=== PATIENT | male | born 1960 | race Caucasian/White ===

== ENCOUNTER 2020-06-25 13:46 | Emergency (ER) | payer OTHER ==
[~2020-06-25] VITALS: Ht 172.7 cm; Wt 77.1 kg
[2020-06-25 13:47] VITALS: BP 157/104
[2020-06-25] MEDS ORDERED: KETOROLAC TROMETH 60MG/2ML VIAL IM ONE (15:30)
== END 2020-06-25 16:24 | disposition home or self-care (01) ==
LOC: ER 13:46
DX: M50.10 Cervical disc disorder with radiculopathy, unspecified cervical region (principal); I10 Essential (primary) hypertension
CPT/HCPCS: 72040; 93005; 96372; 99283; J1885

== ENCOUNTER 2020-08-10 16:18 | Inpatient (IN) | payer OTHER ==
[~2020-08-10] VITALS: Ht 172.7 cm; Wt 73.5 kg
[2020-08-10] MEDS ORDERED: SODIUM CHLORIDE 0.9% 500 ML IVB ONE (16:45)
[2020-08-10] MEDS ORDERED: MORPHINE SULFATE 4 MG/ML SYR/VIAL IV ONE (16:45)
[2020-08-10] MEDS ORDERED: ONDANSETRON HCL 4 MG/2 ML VIAL IV ONE (16:45)
[2020-08-10 16:53] LABS: Basophils # (auto) 0.1 10 ^3/uL (0-0.2); Basophils % (auto) 0.6 % (0.0-2.0); Eosinophils # (auto) 0.1 10 ^3/uL (0-0.8); Eosinophils % (auto) 1.2 % (0.0-7.0); Hematocrit 45.1 % (41.0-53.0); Hemoglobin 15.9 g/dL (13.5-17.5); Lymphocytes # (auto) 1.5 10 ^3/uL (0.4-5.4); Mean Corpuscular Hemoglobin 32.7 pg (28.0-32.0); Mean Corpuscular Hgb Conc. 35.3 g/dL (32.0-36.0); Mean Corpuscular Volume 92.6 fL (80.0-100.0); Monocytes # (auto) 0.8 10 ^3/uL (0-1.3); Neutrophils # (auto) 8.8 10 ^3/uL (1.6-8.6); Neutrophils % (auto) 78.2 % (37.0-80.0); Platelet Count (auto) 248 10^3/uL (140-450); Red Blood Cells 4.87 10^6/uL (4.5-5.90); Red Cell Distribution Width 13.2 % (11.8-14.3); White Blood Cell 11.2 10^3/uL (4.4-10.8)
[2020-08-10 17:10] LABS: Albumin 4.2 g/dL (3.4-5.0); Calcium 9.9 mg/dL (8.5-10.1); Potassium 3.5 mmol/L (3.5-5.1)
[2020-08-10 17:14] LABS: BUN/Creatinine Ratio 14.6; Bilirubin, Total 0.7 mg/dL (0.2-1.0); Total Protein 7.6 g/dL (6.4-8.2)
[2020-08-10] MEDS ORDERED: NITROGLYCERIN 0.4 MG SL TAB SL PRN (18:15)
[2020-08-10] MEDS ORDERED: MORPHINE SULF INJ 2 MG/ML SYRINGE 1ML IV PRN (18:15)
[2020-08-10] MEDS ORDERED: HYDROmorphone HCL 2 MG/ML VL IV ONE (18:15)
[2020-08-10] MEDS ORDERED: LORazepam 2MG/ML-1ML VIAL IV ONE (18:15)
[2020-08-10] MEDS ORDERED: LABETALOL HCL 5 MG/ML 4ML SYRINGE IV PRN (18:15)
[2020-08-10] MEDS ORDERED: PROMETHAZINE HCL 25 MG/ML 1ML ONE (18:46)
[2020-08-10] MEDS: PANTOPRAZOLE 40 MG/10 ML VIAL INJ IV SCH (19:01)
[2020-08-10] MEDS: cefTRIAXone 1GM/50ML D5W 50 ML IV SCH (19:01)
[2020-08-10] MEDS: D5W/SOD CHL 0.45%/KCL 20MEQ 1,000 ML IV SCH (19:16)
[2020-08-10] MEDS: metroNIDAZOLE 500MG/100ML 100 ML IV SCH (22:00)
[2020-08-10 23:15] VITALS: BP 149/86
[2020-08-10] MEDS ORDERED: MORPHINE SULF INJ 2 MG/ML SYRINGE 1ML IV ONE (23:15)
[2020-08-10 23:22] VITALS: BP 149/86
[2020-08-11] MEDS: HYDROmorphone HCL 2 MG/ML VL IV PRN ×4 (00:30→19:58)
[2020-08-11] MEDS: D5W/SOD CHL 0.45%/KCL 20MEQ 1,000 ML IV SCH ×3 (02:35→19:57)
[2020-08-11 05:00] VITALS: BP 135/74
[2020-08-11] MEDS: LORazepam 2MG/ML-1ML VIAL IV PRN ×4 (05:15→22:45)
[2020-08-11] MEDS: metroNIDAZOLE 500MG/100ML 100 ML IV SCH (05:51)
[2020-08-11] MEDS ORDERED: VANCOMYCIN PER PHARMACY 0 MG IV SCH (07:30)
[2020-08-11] MEDS ORDERED: [UNRECOGNIZED DRUG - CODE] BU (07:51)
[2020-08-11] MEDS ORDERED: TAPE50TA PO (07:51)
[2020-08-11] MEDS ORDERED: ARMO1TAB PO (07:51)
[2020-08-11] MEDS ORDERED: CYCL10TA6 PO (07:51)
[2020-08-11] MEDS ORDERED: HYDR-4798 PO (07:51)
[2020-08-11] MEDS ORDERED: LISI-275 PO (07:51)
[2020-08-11] MEDS ORDERED: TRAZ300T13 PO (07:51)
[2020-08-11] MEDS ORDERED: ATEN100T PO (07:51)
[2020-08-11] MEDS ORDERED: MELO1TAB73 PO (07:51)
[2020-08-11 08:23] LABS: Basophils # (auto) 0 10 ^3/uL (0-0.2); Basophils % (auto) 0.4 % (0.0-2.0); Eosinophils # (auto) 0.1 10 ^3/uL (0-0.8); Eosinophils % (auto) 1.5 % (0.0-7.0); Hematocrit 45.1 % (41.0-53.0); Hemoglobin 15.6 g/dL (13.5-17.5); Lymphocytes # (auto) 1.1 10 ^3/uL (0.4-5.4); Lymphocytes % (auto) 11.3 % (10.0-50.0); Mean Corpuscular Hemoglobin 32.2 pg (28.0-32.0); Mean Corpuscular Hgb Conc. 34.5 g/dL (32.0-36.0); Mean Corpuscular Volume 93.2 fL (80.0-100.0); Monocytes # (auto) 0.9 10 ^3/uL (0-1.3); Monocytes % (auto) 9.6 % (0.0-12.0); Neutrophils # (auto) 7.7 10 ^3/uL (1.6-8.6); Neutrophils % (auto) 77.2 % (37.0-80.0); Nucleated Red Blood Cells % 0.1 %; Platelet Count (auto) 219 10^3/uL (140-450); Red Blood Cells 4.84 10^6/uL (4.5-5.90); Red Cell Distribution Width 13.5 % (11.8-14.3); White Blood Cell 9.9 10^3/uL (4.4-10.8)
[2020-08-11 08:27] VITALS: BP 125/75
[2020-08-11 08:41] LABS: BUN/Creatinine Ratio 15.8; Calcium 8.8 mg/dL (8.5-10.1); Potassium 3.5 mmol/L (3.5-5.1)
[2020-08-11] MEDS ORDERED: GASTROGRAFIN 120 ML SOL ONE (09:25)
[2020-08-11] MEDS: PANTOPRAZOLE 40 MG/10 ML VIAL INJ IV SCH (09:39)
[2020-08-11] MEDS: cefTRIAXone 1GM/50ML D5W 50 ML IV SCH (09:40)
[2020-08-11] MEDS: ONDANSETRON HCL 4 MG/2 ML VIAL IV PRN ×2 (11:43→19:59)
[2020-08-11 12:45] VITALS: BP 128/83
[2020-08-11 13:37] LABS: INR 1.03 (0.9-1.15); Partial Thromboplastin Time 30.5 sec (23.0-31.2)
[2020-08-11 17:15] VITALS: BP 155/92
[2020-08-11 22:00] VITALS: BP 137/77
[2020-08-12] MEDS: HYDROmorphone HCL 2 MG/ML VL IV PRN ×3 (00:59→10:18)
[2020-08-12] MEDS: ONDANSETRON HCL 4 MG/2 ML VIAL IV PRN ×2 (01:00→05:05)
[2020-08-12] MEDS: D5W/SOD CHL 0.45%/KCL 20MEQ 1,000 ML IV SCH (03:41)
[2020-08-12 05:00] VITALS: BP 126/82
[2020-08-12 05:46] LABS: Basophils # (auto) 0 10 ^3/uL (0-0.2); Basophils % (auto) 0.1 % (0.0-2.0); Eosinophils # (auto) 0 10 ^3/uL (0-0.8); Eosinophils % (auto) 0.1 % (0.0-7.0); Hematocrit 46.2 % (41.0-53.0); Hemoglobin 16.7 g/dL (13.5-17.5); Lymphocytes # (auto) 0.8 10 ^3/uL (0.4-5.4); Lymphocytes % (auto) 4.8 % (10.0-50.0); Mean Corpuscular Hemoglobin 33.4 pg (28.0-32.0); Mean Corpuscular Volume 92.6 fL (80.0-100.0); Monocytes % (auto) 5.6 % (0.0-12.0); Neutrophils # (auto) 15.2 10 ^3/uL (1.6-8.6); Neutrophils % (auto) 89.4 % (37.0-80.0); Nucleated Red Blood Cells % 0.1 %; Platelet Count (auto) 218 10^3/uL (140-450); Red Blood Cells 4.99 10^6/uL (4.5-5.90)
[2020-08-12 06:01] LABS: Potassium 3.6 mmol/L (3.5-5.1)
[2020-08-12 06:09] LABS: Albumin 3.7 g/dL (3.4-5.0); BUN/Creatinine Ratio 18.3; Bilirubin, Total 0.7 mg/dL (0.2-1.0); Total Protein 7.2 g/dL (6.4-8.2)
[2020-08-12 08:51] VITALS: BP 141/81
[2020-08-12] MEDS: PANTOPRAZOLE 40 MG/10 ML VIAL INJ IV SCH (10:18)
[2020-08-12 10:44] LABS: Urine Amorphous Crystal FEW /hpf (None Seen); Urine Bacteria FEW /hpf (None Seen); Urine Blood Negative /uL (Negative); Urine Mucus MODERATE (None Seen); Urine Specific Gravity 1.028 (1.001-1.035); Urine WBC 8 /hpf (0 - 3)
[2020-08-12 13:00] VITALS: BP 134/87
[2020-08-12] MEDS ORDERED: ONDA-144 PO (14:25)
[2020-08-12] MEDS ORDERED: ATENOLOL 25 MG TAB PO ONE (14:30)
[2020-08-12 16:59] VITALS: BP 136/74
[2020-08-12 17:54] VITALS: BP 136/74
[2020-08-13] MEDS ORDERED: ATENOLOL 50 MG TAB PO SCH (10:00)
== END 2020-08-12 21:34 | disposition home or self-care (01) | DRG 390 ==
LOC: ER 16:18 → TELE 18:01 → TELE-EAST 21:50
PROVIDERS: ADMIT Nurse Practitioner Acute Care; ATTEND Internal Medicine
DX: K56.600 Partial intestinal obstruction, unspecified as to cause (principal); F41.9 Anxiety disorder, unspecified; G89.4 Chronic pain syndrome; I10 Essential (primary) hypertension; F31.9 Bipolar disorder, unspecified; D72.829 Elevated white blood cell count, unspecified; M54.5 Low back pain; Z20.822 Contact with and (suspected) exposure to COVID-19; K57.30 Diverticulosis of large intestine without perforation or abscess without bleeding; Z80.0 Family history of malignant neoplasm of digestive organs; Z80.8 Family history of malignant neoplasm of other organs or systems; Z82.0 Family history of epilepsy and other diseases of the nervous system
CPT/HCPCS: 36415; 71045; 74018; 74176; 74250; 80048; 80053; 81001; 82270; 83690; 83735; 85025; 85610; 85730; 86850; 86900; 86901; 87045; 87426; 87427; 93005; 96361; 96374; 96375; C9113; G0378; J0696; J2405; J3490

== ENCOUNTER 2020-08-30 15:45 | Emergency (ER) | payer OTHER ==
[~2020-08-30] VITALS: Ht 172.7 cm; Wt 76.2 kg
[~2020-08-30 15:45] MED LIST: ARMO1TAB PO; ATEN100T PO; CYCL10TA6 PO; HYDR-4798 PO; LISI-275 PO; MELO1TAB73 PO; ONDA-144 PO; TAPE50TA PO; TRAZ300T13 PO; [UNRECOGNIZED DRUG - CODE] BU
[2020-08-30] MEDS ORDERED: LIDOCAINE VISCOUS 2% 15ML UD MT ONE (17:30)
[2020-08-30 17:33] VITALS: BP 103/60
[2020-08-30] MEDS ORDERED: LIDOCAINE VISCOUS 2% 15ML UD PO ONE (18:30)
== END 2020-08-30 19:02 | disposition home or self-care (01) ==
LOC: ER 15:50
DX: K12.30 Oral mucositis (ulcerative), unspecified (principal); I10 Essential (primary) hypertension; Z79.899 Other long term (current) drug therapy

== ENCOUNTER 2020-12-30 18:11 | Emergency (ER) | payer OTHER ==
[~2020-12-30] VITALS: Ht 172.7 cm; Wt 69.4 kg
[~2020-12-30 18:11] MED LIST changes: +CYCL-839 PO; -CYCL10TA6 PO
[2020-12-30 18:13] VITALS: BP 153/90
[2020-12-30 19:29] LABS: Basophils # (auto) 0 10 ^3/uL (0-0.2); Basophils % (auto) 0.5 % (0.0-2.0); Eosinophils # (auto) 0.1 10 ^3/uL (0-0.8); Eosinophils % (auto) 1.4 % (0.0-7.0); Hematocrit 44.5 % (41.0-53.0); Hemoglobin 15.2 g/dL (13.5-17.5); Lymphocytes # (auto) 1.9 10 ^3/uL (0.4-5.4); Lymphocytes % (auto) 19.7 % (10.0-50.0); Mean Corpuscular Hemoglobin 31.3 pg (28.0-32.0); Mean Corpuscular Hgb Conc. 34.2 g/dL (32.0-36.0); Mean Corpuscular Volume 91.4 fL (80.0-100.0); Monocytes # (auto) 0.7 10 ^3/uL (0-1.3); Monocytes % (auto) 7.2 % (0.0-12.0); Neutrophils # (auto) 6.9 10 ^3/uL (1.6-8.6); Neutrophils % (auto) 71.2 % (37.0-80.0); Nucleated Red Blood Cells % 0.1 %; Red Blood Cells 4.87 10^6/uL (4.5-5.90); Red Cell Distribution Width 13.4 % (11.8-14.3); White Blood Cell 9.7 10^3/uL (4.4-10.8)
[2020-12-30 20:00] LABS: Chloride 102 mmol/L (98-107); Sodium 138 mmol/L (136-145)
[2020-12-30 20:05] LABS: Alanine Aminotransferase 34 U/L (16-61); Albumin 3.8 g/dL (3.4-5.0); Anion Gap 8 (5-15); Aspartate Aminotransferase 17 U/L (15-37); BUN/Creatinine Ratio 13.4; Blood Urea Nitrogen 11 mg/dL (7-18); Calcium 9.5 mg/dL (8.5-10.1); Carbon Dioxide 28 mmol/L (21-32); GFR African American 122 mL/min; GFR Non-African American 101 mL/min; Glucose 101 mg/dL (74-106)
[2020-12-30 20:10] LABS: Alkaline Phosphatase 113 U/L (45-117); Bilirubin, Total 0.6 mg/dL (0.2-1.0); Total Protein 7.3 g/dL (6.4-8.2)
== END 2020-12-30 21:37 | disposition left against medical advice (07) ==
LOC: ER 18:13
DX: R53.1 Weakness (principal); M54.50 Low back pain, unspecified; R20.2 Paresthesia of skin; Z53.21 Procedure and treatment not carried out due to patient leaving prior to being seen by health care provider
CPT/HCPCS: 36415; 80053; 84484; 85025; 93005